=== PATIENT | female | born 1980 | race Caucasian/White ===

== ENCOUNTER 2016-06-06 06:27 | Day surgery (SDC) | payer OTHER ==
[~2016-06-06] VITALS: Ht 161.3 cm; Wt 45.5 kg
[~2016-06-06 06:27] MED LIST: Z.0.NO CURRENT MEDS
[2016-06-06 07:03] VITALS: BP 110/75; PULSE 89; RESP 20; TEMP 98; O2SAT 99
[2016-06-06 07:45] LABS: AUTOMATED NEUTROPHIL # 3.1 TH/MM3 (1.8-7.7); BASOPHIL % 0.9 % (0.0-2.0); EOSINOPHIL # 0.1 TH/MM3 (0-0.4); EOSINOPHIL % 2.7 % (0.0-4.0); HEMATOCRIT 28.8 % (35.0-46.0); HEMO FLAGS DIFF FINAL; LYMPH % 21.3 % (9.0-44.0); MEAN CELL VOLUME 87.2 FL (80.0-100.0); MEAN CORPUSCULAR HEMOGLOBIN 29.3 PG (27.0-34.0); MEAN CORPUSCULAR HGB CONC 33.6 % (32.0-36.0); MONO % 8.1 % (0.0-8.0); PLATELET COUNT 180 TH/MM3 (150-450); RED CELL DISTRIBUTION WIDTH 13.3 % (11.6-17.2); WHITE BLOOD COUNT 4.6 TH/MM3 (4.0-11.0)
[2016-06-06 07:55] LABS: APTT (PATIENT) 23.5 SEC (24.3-30.1); PROTHROMBIN TIME - PATIENT 10.9 SEC (9.8-11.6)
[2016-06-06 08:00] LABS: POTASSIUM 3.5 MEQ/L (3.5-5.1)
[2016-06-06] MEDS ORDERED: LORazepam 1 MG TAB PO ONE (08:00)
[2016-06-06 09:00] VITALS: BP 107/67; PULSE 95; RESP 20; TEMP 98.4; O2SAT 99
--- NOTE | 2016-06-06 09:18 | PD.RAD ---
Post Procedure Progress Note Pre Procedure Diagnosis: (1) Facial spasm Post Procedure Diagnosis: (1) Facial spasm Procedure Date: Jun 06, 2016 Supervising Radiologist: Cameron Zelaya Proceduralist/Assist: RT Naman(R), RT Renee(R) Anesthesia: Local Plan of Activity Patient to Unit: ROPU Patient Condition: Good See PACS Report for procedural detail/treatment Spinal Procedure Lumbar Puncture L3-L4 Fluid Removal (CCs): 19 Fluid Description: Clear Puncture Time: 08:51 Findings: OP: 21 cmH2O CP: 16 cmH2O Cameron Zelaya MD Jun 06, 2016 09:18
[2016-06-06 10:35] VITALS: BP 92/58; PULSE 88; RESP 16; O2SAT 98
[2016-06-06 10:49] LABS: GROSS BLOOD TUBE #1 0 (0); SUPERNATE COLOR TUBE #1 CLEAR (CLEAR); VOLUME TUBE # 1 3.1 ML
[2016-06-06 10:50] LABS: CSF LYMPHOCYTES 98 %; CSF MONOCYTES 2 %; CSF NEUTROPHILS 0 %; GROSS BLOOD TUBE #2 0 (0); GROSS BLOOD TUBE #3 0 (0); GROSS BLOOD TUBE #4 0 (0); SUPERNATE COLOR TUBE #2 CLEAR (CLEAR); SUPERNATE COLOR TUBE #3 CLEAR (CLEAR); SUPERNATE COLOR TUBE #4 CLEAR (CLEAR); VOLUME TUBE # 2 3.3 ML; VOLUME TUBE # 4 8.2 ML; WBC TUBE #1 3 /MM3 (0-10)
[2016-06-06 10:56] LABS: CSF LYMPHOCYTES 96 %; CSF MONOCYTES 4 %; CSF NEUTROPHILS 0 %; GROSS BLOOD TUBE #4 0 (0); SUPERNATE COLOR TUBE #4 CLEAR (CLEAR); VOLUME TUBE # 4 8.2 ML; WBC TUBE #4 4 /MM3 (0-10)
--- NOTE | 2016-06-06 13:44 | RADRPT ---
EXAM DATE/TIME: 06/06/2016 08:36 [facility] COMPARISON: No previous studies available for comparison. INDICATIONS : Patient with left hitesh-facial spasm and headaches in need of lumbar puncture. MEDICAL HISTORY : Lyme disease, Multiple sclerosis, Kidney stones, Neuropathy, Headaches SURGICAL HISTORY : Kidney stones removal ENCOUNTER: Initial ACUITY: 4 - 6 months PAIN SCORE: 0/10 LUMBAR PUNCTURE TIME: 0851 hours FLUORO TIME: 0.7 minutes IMAGE SERIES: 0 ACCESS LEVEL: L3-4 OPENING PRESSURE: 21 cm of water CLOSING PRESSURE: 16 cm of water FLUID: 19 cc of clear CSF was collected and sent to the laboratory for analysis. PROCEDURE : 1. Fluoroscopic guided lumbar puncture. 2. Recording of opening pressure. The risks, benefits and alternatives to the procedure were explained and verbal and written consent w as obtained. The site was prepped in sterile fashion. Full sterile technique was used, including ca p, mask, sterile gloves and gown and a large sterile sheet. Hand hygiene and 2% chlorhexidine and/or betadine/alcohol prep was utilized per protocol for cutaneous antisepsis. The skin and subcutaneous tissues were infiltrated with local anesthetic solution. With fluoroscopic guidance the lumbar thecal sac was punctured at the above level described above and the opening pressure was recorded. The above described fluid was removed without difficulty. The patient tolerated the procedure well and there were no complications. CONCLUSION: Uncomplicated fluoroscopically guided lumbar puncture with pressures as above. Cameron Zelaya MD on June 06, 2016 at 13:42 Board Certified Radiologist. This report was verified electronically.
[2016-06-07 08:22] LABS: HSV 1,PCR Negative (Negative)
[2016-06-07 16:09] LABS: CMV PCR SPECIMEN SOURCE CSF (()); LYME IGG IMMUNOBLOT CSF None Detected bands (None Detected); LYME IGM IMMUNOBLOT CSF None Detected bands (None Detected)
[2016-06-09 09:13] LABS: CSF CRYPTOCOCCUS AG CONF ND (NOT DETECTD)
[2016-06-10 07:50] LABS: VZV PCR RESULT <500 (())
[2016-06-10 19:53] LABS: OLIGOCLONAL BANDING CSF BANDS NOTED (NO BANDS)
== END 2016-06-06 10:54 | disposition home or self-care (01) ==
LOC: HROP 06:27 → HRIP 06:27 → HROP 10:54
PROVIDERS: ATTEND Psychiatry & Neurology Neurology
DX: G35 Multiple sclerosis (principal); G51.3 Clonic hemifacial spasm; G62.9 Polyneuropathy, unspecified; Z87.442 Personal history of urinary calculi
CPT/HCPCS: 62270; 77003; 80048; 82040; 82042; 82784; 82945; 83873; 83916; 84157; 85025; 85610; 85730; 86403; 86618; 87070; 87205; 87497; 87529; 87799; 88112; 89051

== ENCOUNTER 2016-08-26 20:51 | Observation (INO) | payer OTHER ==
[~2016-08-26] VITALS: Ht 162.6 cm; Wt 45.0 kg
[2016-08-26 20:52] VITALS: BP 106/57; PULSE 77; RESP 16; TEMP 98.8; O2SAT 100
[2016-08-26 22:32] VITALS: BP 108/58; PULSE 80; RESP 18; O2SAT 98
--- NOTE | 2016-08-26 23:01 | PD ---
HPI Chief Complaint: Abdominal Pain Time Seen by Provider: 22:33 Travel History International Travel<30 days: No Contact w/Intl Traveler<30days: No Traveled to known affect area: No History of Present Illness HPI The patient is 36 year old female who presents to the [facility] emergency department with a history of being started on Misoprostol by her operations mgr, earlier today for a miscarriage. The patient reports that she had been having some spotting and on August 22, 2016 no heart activity was identified on her ultrasound. She was started on this medicine along with ibuprofen today to facilitate the miscarriage process. She reports that she is a with one delivery 14 years ago. The patient reports that she comes to the emergency department today related to severe pain and cramping it is unrelieved with ibuprofen since starting the Misoprotol. She reports that she has passed 2 small blood clots. She reports that she is normally anemic with hemoglobin of 11. The patient denies any recent fevers, cough, congestion , neck pain, lightheaded sensation, chest pain, shortness of breath, vomiting, urinary symptoms, or neurologic symptoms. She reports that she has had diarrhea x6 today since starting the medication. LMP: 06/30/2016, unknown blood type. [facility] Past Medical History Narrative Medical The patient's past medical history is significant for multiple sclerosis recently diagnosed- hemifacial spasm- led to the diagnosis, lyme disease, kidney stones. The patient has a history of delivery due to failure to progress in labor. Cancer: No Cardiovascular Problems: No Diabetes: No Diminished Hearing: No Endocrine: No Genitourinary: No Kidney Stones: Yes Neurologic: Yes (frequent headaches) Respiratory: No Immunizations Current: No Thyroid Disease: No Tetanus Vaccination: Unknown Influenza Vaccination: No ?: Past Surgical History Narrative Surgical The patient's past surgical history is significant for a times one. Section: Yes Genitourinary Surgery: Yes (KIDNEY STONE REMOVAL 2004) Gynecologic Surgery: Yes (csection) Social History Alcohol Use: No Tobacco Use: No Substance Use: No Allergies-Medications (Allergen,Severity, Reaction): Coded Allergies: Apple (Verified Allergy, Severe, 08/26/16) Dilaudid (Verified Allergy, Severe, 08/26/16) Kiwi (Verified Allergy, Severe, 08/26/16) Soy Flour (Verified Allergy, Severe, 08/26/16) Whey Hydrolysates (Verified Allergy, Severe, 08/26/16) Dairy (Verified Allergy, Unknown, 08/26/16) Naproxen (Verified Allergy, Unknown, SWELLING, 08/26/16) Wheat (Verified Allergy, Unknown, 08/26/16) Reported Meds & Prescriptions Reported Meds & Active Scripts Active Lortab (Hydrocodone-Acetaminophen) 5-325 Mg Tab 1 Tab PO Q6H PRN Narrative Medication Misoprostol Review of Systems Except as stated in HPI: all other systems reviewed are Neg General / Constitutional: No: Fever Eyes: No: Visual changes HENT: No: Headaches Cardiovascular: No: Chest Pain or Discomfort Respiratory: No: Shortness of Breath Gastrointestinal: Positive: Diarrhea, Abdominal Pain, Changes in Bowel Habits, No: Nausea, Vomiting Genitourinary: Positive: Pelvic Pain, Vaginal Bleeding, No: Dysuria Musculoskeletal: No: Pain Skin: No Rash Neurologic: No: Weakness Psychiatric: No: Depression Endocrine: No: Polydipsia Hematologic/Lymphatic: No: Easy Bruising Physical Exam Narrative General: The patient is a well-developed well-nourished female in no acute distress. Head and Neck exam: Head is normocephalic atraumatic. Eyes: EOMI, pupils are equal round and reactive to light. Nose: Midline septum with pink mucous membranes Mouth: Dentition unremarkable. Moist mucus membranes. Posterior oropharynx is not erythematous. No tonsillar hypertrophy. Uvula midline. Airway patent. Neck: No palpable lymphadenopathy. No nuchal rigidity. No thyromegaly. Cardiovascular: Regular rate and rhythm without murmurs, gallops, or rubs. Lungs: Clear to auscultation bilaterally. No wheezes, rhonchi, or rales. Abdomen: Soft, with suprapubic abdominal discomfort on palpation, no other tenderness on palpation of the other 4 quadrants of the abdomen. No guarding, rebound, or rigidity. Normal bowel sounds are audible. No tenderness on palpation of McBurney's point. Extremities: No clubbing, cyanosis, or edema. 2+ pulses in all 4 extremities. No calf tenderness on palpation. Back: No costovertebral angle tenderness to palpation. Neurologic Exam: Grossly nonfocal. Skin Exam: No rash noted. Intact skin that is warm and dry. Data Data Last Documented VS Vital Signs Date Time Temp Pulse Resp B/P Pulse Ox O2 Delivery O2 Flow Rate FiO2 08/26/16 23:28 99 Room Air 08/26/16 22:32 80 18 108/58 08/26/16 20:52 98.8 Orders Complete Blood Count With Diff (08/26/16 22:39) Comprehensive Metabolic Panel (08/26/16 22:39) Prothrombin Time / Inr (Pt) (08/26/16 22:39) Act Partial Throm Time (Ptt) (08/26/16 22:39) Urinalysis - C+S If Indicated (08/26/16 22:39) Beta Hcg (Quant/Titer) (08/26/16 22:39) Iv Access Insert/Monitor (08/26/16 22:39) Ecg Monitoring (08/26/16 22:39) Oximetry (08/26/16 22:39) Complete Rh (08/26/16 22:39) Sodium Chlor 0.9% 1000 Ml Inj (Ns 1000 M (08/26/16 23:15) Ondansetron Inj (Zofran Inj) (08/26/16 23:15) Morphine Inj (Morphine Inj) (08/26/16 23:15) Urine Culture (08/26/16 22:44) Morphine Inj (Morphine Inj) (08/27/16 00:30) Acetamin-Hydrocod 325-5 Mg ([place] 5-325 (08/27/16 01:00) Ondansetron Inj (Zofran Inj) (08/27/16 01:00) Labs Laboratory Tests Test 08/26/16 08/26/16 22:44 22:49 White Blood Count 9.3 TH/MM3 Red Blood Count 3.68 MIL/MM3 Hemoglobin 10.4 GM/DL Hematocrit 31.2 % Mean Corpuscular Volume 84.8 FL Mean Corpuscular Hemoglobin 28.3 PG Mean Corpuscular Hemoglobin 33.3 % Concent Red Cell Distribution Width 14.6 % Platelet Count 234 TH/MM3 Mean Platelet Volume 9.7 FL Neutrophils (%) (Auto) 80.4 % Lymphocytes (%) (Auto) 13.3 % Monocytes (%) (Auto) 5.5 % Eosinophils (%) (Auto) 0.3 % Basophils (%) (Auto) 0.5 % Neutrophils # (Auto) 7.5 TH/MM3 Lymphocytes # (Auto) 1.2 TH/MM3 Monocytes # (Auto) 0.5 TH/MM3 Eosinophils # (Auto) 0.0 TH/MM3 Basophils # (Auto) 0.0 TH/MM3 CBC Comment DIFF FINAL Differential Comment Prothrombin Time 10.6 SEC Prothromb Time International 1.0 RATIO Ratio Activated Partial 22.0 SEC Thromboplast Time Urine Color RED Urine Turbidity CLOUDY Urine pH 5.5 Urine Specific [place] 1.022 Urine Protein 300 mg/dL Urine Glucose (UA) NEG mg/dL Urine Ketones TRACE mg/dL Urine Occult Blood LARGE Urine Nitrite NEG Urine Bilirubin NEG Urine Urobilinogen LESS THAN 2.0 MG/DL Urine Leukocyte Esterase TRACE Urine RBC /hpf Urine WBC 18 /hpf Urine Mucus FEW /lpf Microscopic Urinalysis Comment CULTURE INDICATED Sodium Level 138 MEQ/L Potassium Level 3.6 MEQ/L Chloride Level 105 MEQ/L Carbon Dioxide Level 22.6 MEQ/L Anion Gap 10 MEQ/L Blood Urea Nitrogen 10 MG/DL Creatinine 0.61 MG/DL Estimat Glomerular Filtration 112 ML/MIN Rate Random Glucose 103 MG/DL Calcium Level 8.7 MG/DL Total Bilirubin 0.4 MG/DL Aspartate Amino Transf 14 U/L (AST/SGOT) Alanine Aminotransferase 19 U/L (ALT/SGPT) Alkaline Phosphatase 49 U/L Total Protein 7.4 GM/DL Albumin 4.2 GM/DL Human Chorionic Gonadotropin, 08622 MIU/ML Quant Blood Type A POSITIVE Rho(D) Type POSITIVE MDM Medical Decision Making Medical Screen Exam Complete: Yes Emergency Medical Condition: Yes Medical Record Reviewed: Yes Differential Diagnosis Progression of anemia related to miscarriage process, versus increased pain related to Misoprostol administration, versus urinary tract infection Narrative Course During the course of the patients emergency department visit, the patients history, examination, and differential diagnosis were reviewed with the patient. The patient had IV access obtained and blood work sent for analysis. The patient was on a cardiac cath rn with oximetry and blood pressure monitoring. The patient was initially provided normal saline 1 L IV fluid bolus, morphine 2 mg IV, Zofran 4 mg IV. The patients laboratory studies were reviewed and remarkable for a CMP that is remarkable for a 10 AST of 14, quantitative beta hCG is 38,054. PT PTT within normal limits, white count 9.3, hemoglobin 10.4, platelets 234 with 80.4 neutrophils, urinalysis shows innumerable rbc's related to her vaginal bleeding. The patient's blood type is noted to be A positive. The patient was given a second dose of morphine 4 mg IV. The patient was then given Lortab for longer acting pain control. The patient will be discharged home with a prescription for Lortab. The patient is resting comfortably and feels better, is alert and in no distress. The patients results and examination findings were discussed with the patient. The repeat examination is unremarkable and benign. The history, exam, diagnostic testing, and current condition do not suggest any significant pathology to warrant further testing, continued ED treatment, admission, or surgical evaluation at this point. The vital signs have been stable. The patient does not have uncontrollable pain, intractable vomiting, or other significant symptoms. The patient's condition is stable and appropriate for discharge. The patient will pursue further outpatient evaluation with a primary care physician or other designated or consulting physician as indicated in the discharge instructions. The patient expressed understanding and was agreeable with this plan. Diagnosis Primary Impression: Incomplete miscarriage Referrals: Theresa Hodge MD 2 days Patient Instructions: General Instructions, Miscarriage (ED) Additional Instructions: The patient is instructed on bed rest and pelvic rest. The patient is instructed on the importance of close follow-up with her operations mgr. Med/Other Pt SpecificInfo: Prescription(s) given Scripts Hydrocodone-Acetaminophen (Lortab)5-325 Mg Tab1 Tab PO Q6H PRN (PAIN) #12 TAB Ref 0 Prov:Clarisse Gagnon MD 08/26/16 Disposition: 01 DISCHARGE HOME Condition: Stable Clarisse Gagnon MD Aug 26, 2016 23:01
[2016-08-26 23:02] LABS: AUTOMATED NEUTROPHIL # 7.5 TH/MM3 (1.8-7.7); BASOPHIL % 0.5 % (0.0-2.0); EOSINOPHIL % 0.3 % (0.0-4.0); HEMATOCRIT 31.2 % (35.0-46.0); HEMO FLAGS DIFF FINAL; LYMPH % 13.3 % (9.0-44.0); LYMPHOCYTE # 1.2 TH/MM3 (1.0-4.8); MEAN CELL VOLUME 84.8 FL (80.0-100.0); MEAN CORPUSCULAR HEMOGLOBIN 28.3 PG (27.0-34.0); MEAN CORPUSCULAR HGB CONC 33.3 % (32.0-36.0); MONO % 5.5 % (0.0-8.0); NEUT % 80.4 % (16.0-70.0); PLATELET COUNT 234 TH/MM3 (150-450); RED BLOOD COUNT 3.68 MIL/MM3 (4.00-5.30); RED CELL DISTRIBUTION WIDTH 14.6 % (11.6-17.2); WHITE BLOOD COUNT 9.3 TH/MM3 (4.0-11.0)
[2016-08-26 23:14] LABS: PROTHROMBIN TIME - PATIENT 10.6 SEC (9.8-11.6)
[2016-08-26] MEDS ORDERED: MORPHINE SULFATE 4 MG/ML INJ IV PUSH ONE (23:15)
[2016-08-26] MEDS ORDERED: SODIUM CHLOR 0.9% 1000 ML INJ 1,000 ML IV ONE (23:15)
[2016-08-26] MEDS ORDERED: ONDANSETRON HCL 4 MG/2 ML VIAL IV ONE (23:15)
[2016-08-26 23:20] LABS: ALT (GPT) 19 U/L (10-53); ANION GAP 10 MEQ/L (5-15); AST (GOT) 14 U/L (15-37); BICARBONATE 22.6 MEQ/L (21.0-32.0); BLOOD UREA NITROGEN 10 MG/DL (7-18); CHLORIDE 105 MEQ/L (98-107); GLOMERULAR FILTRATION RATE 112 ML/MIN (>89); POTASSIUM 3.6 MEQ/L (3.5-5.1); SODIUM (NA) 138 MEQ/L (136-145)
[2016-08-26 23:21] LABS: BLOOD, URINE LARGE (NEG); COMMENT (UR) CULTURE INDICATED; CULTURE IF INDICATED CULTURE INDICATED; GLUCOSE,URINE NEG (NEG); KETONE, URINE TRACE mg/dL (NEG); MUCUS URINE FEW /lpf (OCC); NITRITE,URINE NEG (NEG); PH, URINE 5.5 (5.0-8.5)
[2016-08-26 23:24] LABS: ALKALINE PHOSPHATASE 49 U/L (45-117); TOTAL BILIRUBIN ADULT 0.4 MG/DL (0.2-1.0); URINE COLOR RED (YELLW/STRAW)
[2016-08-26 23:28] VITALS: O2SAT 99
[2016-08-26] MEDS ORDERED: HYDR-3533 PO (23:35)
[2016-08-26 23:45] LABS: BETA HCG QUANT 38054 MIU/ML (0-5)
[2016-08-27] MEDS ORDERED: MORPHINE SULFATE 4 MG/ML INJ IV PUSH ONE ×2 (00:30→02:00)
[2016-08-27] MEDS ORDERED: ONDANSETRON HCL 4 MG/2 ML VIAL IV PUSH ONE (01:00)
[2016-08-27] MEDS ORDERED: ACETAMINOPHEN/HYDROcodone 325 MG/5 MG TAB PO ONE (01:00)
[2016-08-27] MEDS ORDERED: SODIUM CHLOR 0.9% 1000 ML INJ 1,000 ML IV ONE (02:00)
[2016-08-27 03:00] VITALS: BP 117/78; PULSE 70; RESP 18; O2SAT 99
[2016-08-27] MEDS ORDERED: MORPHINE SULFATE 4 MG/ML INJ IV PRN (03:15)
[2016-08-27] MEDS ORDERED: SODIUM CHLORIDE FLUSH PRN IV FLUSH (03:15)
[2016-08-27 04:33] VITALS: BP 94/50; PULSE 66; RESP 18; TEMP 98.8; O2SAT 98
[2016-08-27] MEDS ORDERED: MISCELLANEOUS NURSING INFORMATION PRN (05:15)
[2016-08-27 07:28] VITALS: BP 81/48; PULSE 78; RESP 17; TEMP 97.8; O2SAT 98
[2016-08-27] MEDS ORDERED: LACTATED RINGER'S 1000 ML INJ 1,000 ML IV SCH (08:45)
[2016-08-27] MEDS ORDERED: HYDR-3533 PO (08:50)
--- NOTE | 2016-08-27 08:50 | HHI.PR ---
CASINO CASHIER Note Note To bedside to evaluate pt, admitted to ED Obs overnight for acute severe pain in setting of active miscarriage, seen in office last week with gestational sac , FP measuring 6 wks, no progression from 2 weeks prior, quant beta hcg as outpt last Thurs & Sat decreased from ~57,000 > ~ 55,000; pt desired active mgmt & had been prescribed by [facility] cytotec 600mcg po q4h x 2 & ibuprofen 600mg q6h prn cramps; pain was not improved with medication & pt had passage of clots & tissue prior to coming to ED S: feeling slightly better, thinks only need motrin right now, declines addt'l IV pain meds; cramping 09/16 pain improved from 10 last PM; no heavy bleeding currently, no dizziness, denies SOB or chest pain, palpitations O: laying in bed, NAD RRR no murmur CTA b/l no wheeze abd soft ntnd +BS ext no c/c/e no active bleeding A/P: 36 yo with active miscarriage, passed products early this morning with painful cramping leading to ER visit - check stat H/H now - check stat pelvic sono to eval POC - if sono & H/H ok will d/c to home with office f/u tmrw, no need for addt'l cytotec & ok to take Motrin (already prescibed) & Lortab (will print Rx for home use) Theresa Hodge MD Aug 27, 2016 08:50
[2016-08-27] MEDS: SODIUM CHLORIDE FLUSH BID IV FLUSH SCH (09:00)
[2016-08-27 10:29] LABS: HEMATOCRIT 24.7 % (35.0-46.0); REVIEW FLAG FINAL
--- NOTE | 2016-08-27 10:30 | RADRPT ---
EXAM DATE/TIME: 08/27/2016 08:54 [facility] COMPARISON: No previous studies available for comparison. INDICATIONS : Heavy bleeding and pain after miscarraige. MEDICAL HISTORY : Multiple sclerosis. termination after demise. Anemia. SURGICAL HISTORY : section. Kidney stone removal ENCOUNTER: Initial ACUITY: 2 days PAIN SCORE: 8/10 LOCATION: Bilateral pelvis MEASUREMENTS: TRANSVAGINAL: UTERUS: 10.0 x 5.0 x 5.3 cm ENDOMETRIAL STRIPE: 9 mm RIGHT OVARY: Non visualized LEFT OVARY: 3.4 x 2.1 x 2.2 cm FINDINGS: UTERUS: No IUP is seen. The endometrium measures 9 mm. RIGHT OVARY: The right ovary is not seen. LEFT OVARY: There is an ill-defined structure in the left adnexa with peripheral blood flow seen. This may be rel ated to the left ovary. Other etiologies including an ectopic could have this appearance. MISCELLANEOUS: There is moderate to large complex free fluid seen. There is some increased echogenicity within this fluid which may represent hemorrhage. CONCLUSION: 1. No IUP is seen. 2. 3.4 cm left adnexal mass with peripheral flow. This is nonspecific. It could be related to the lef t ovary. No follicles are seen. Other etiologies including an ectopic cannot be excluded. 3. Moderate to large amount of complex fluid in the pelvis including echogenic areas which may repres ent hemorrhage. Jarvis Hobbs MD on August 27, 2016 at 10:16 Board Certified Radiologist. This report was verified electronically.
[2016-08-27 10:33] VITALS: BP 84/49; PULSE 68; PULSE 99; RESP 16; TEMP 98.4; O2SAT 100; O2SAT 70
--- NOTE | 2016-08-27 11:01 | HHI.PR ---
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
[2016-08-27 11:22] VITALS: BP 85/52; PULSE 67
== END 2016-08-27 12:18 | disposition home or self-care (01) ==
LOC: NEPC 20:51 → NEDA 08-27 01:48 → NEPFCDU 08-27 03:30
PROVIDERS: ADMIT Obstetrics & Gynecology; ATTEND Obstetrics & Gynecology
DX: O03.9 Complete or unspecified spontaneous abortion without complication (principal); G35 Multiple sclerosis; Z87.442 Personal history of urinary calculi; Z88.5 Allergy status to narcotic agent; Z88.8 Allergy status to other drugs, medicaments and biological substances; Z91.018 Allergy to other foods
CPT/HCPCS: 76830; 76856; 80053; 81001; 84702; 85014; 85018; 85025; 85610; 85730; 86901; 87086; 96361; 96374; 96375; 99285; G0378; J2270; J2405; J7030; J7120